=== PATIENT | female | born 1970 | race Caucasian/White ===

== ENCOUNTER → 2018-04-03 | Outpatient (CLI) | payer OTHER ==
[~2018-04-03] MED LIST: ADDERALL 30 MG30 MG PO; BUPROPION HCL100 MG PO; NORCO 7.5-3251 EACH PO
--- NOTE | 2018-04-03 12:23 | Diagnostic Imaging Report ---
TECHNIQUE: Magnetic resonance imaging of the LEFT foot was performed WITHOUT injected contrast. HISTORY: Left foot pain, lump COMPARISON: None available. DISCUSSION: Bone marrow signal is normal. No infiltrating lesion. Hardware with susceptibility artifact of the fifth metatarsal. Joint alignment intact. First MTP joint degenerative arthrosis. Plantar soft tissue marker placed on the level of the mid foot. 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 Signed by: Dr. Juan A Cedeño M.D. on 04/03/2018 12:20 PM
== END ==
LOC: MRI 10:36
PROVIDERS: ATTEND Podiatrist Foot & Ankle Surgery
DX: R22.42 Localized swelling, mass and lump, left lower limb (principal)

== ENCOUNTER → 2018-09-02 | Day surgery (SDC) | payer OTHER ==
[~2018-09-02] MED LIST changes: +ASPIR 8181 MG PO; +BALANCED SALT SOLN (OPTH) 15 ML BTL IO ONE; +FENTANYL CITRATE/PF 100MCG/2 ML INJ ONE; +GELATIN SPONGE 12-7MM ONE; +LIDOCAINE 2% /EPINEPHRINE 20 ML SDV INJ ONE; +LOSARTAN POTASS25 MG PO; +METOPROLOL SUCC25 MG PO; +MIDAZOLAM HCL 2 MG/2 ML VIAL ONE; +MULTI-VITAMIN1 EACH PO; +NEOMYCIN/POLYMYXIN/DEX (OPTH) 3.5 GM TUBE ONE; +PROPOFOL IV EMULSION 10 MG/ML 20 ML VIAL ONE; +SPIRONOLACTONE25 MG PO
--- OUTSIDE RECORDS SUMMARY | 2018-09-02 13:19 | XMS REPORT | Summary of Care ---
Author Author Letty Pollard R.N. Unknown Address Unknown Phone Unavailable Care Team Providers Care Sql Ssrs Ssis Developer Name Role Phone JOSÉ MIGUEL Contreras, EVARISTO Unavailable Unavailable EDGAR AVENDAÑO, GM Unavailable Unavailable EDGAR Contreras, GM Unavailable Unavailable Saud ARAGON, Yohannes Unavailable Unavailable MATOS ROOF TRUSS BUILDER, CHLOE Unavailable Unavailable José Miguel ARAGON, Evaristo Unavailable Unavailable IVAN LOCKHART, MONTSERRAT Unavailable Unavailable Unavailable Unavailable Functional Status Name Dates Details Functional status health issues are not documented Status: Name Dates Details Cognitive status health issues are not documented Status: Problems Name Dates Details Follicular cyst of skin and subcutaneous tissue (706.2, L72.9) Status: Active Acute upper respiratory infection (465.9, J06.9) Status: Active Reactive airway disease (493.90, J45.909) Status: Active Symptomatic menopausal or female climacteric states (627.2, N95.1) Status: Active Amenorrhea (626.0, N91.2) Status: Active Hot flashes, menopausal (627.2, N95.1) Status: Active 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, 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 Sebaceous cyst (706.2, L72.3) Status: Active Nausea (787.02, R11.0) Status: Active Acute vaginitis (616.10, N76.0) Status: Active Vaginal lesion (623.8, N89.8) Status: Active Exposure to STD (V01.6, Z20.2) Status: Active Herpes simplex viral infection (054.9, B00.9) Status: Active Well female exam with routine gynecological exam (V72.31, Z01.419) Status: Active Screening cholesterol level (V77.91, Z13.220) Status: Active Anxiety (300.00, F41.9) Status: Active Abdominal discomfort, generalized (789.07, R10.84) Status: Active Screen for colon cancer (V76.51, Z12.11) Status: Active Screening for diabetes mellitus (V77.1, Z13.1) Status: Active Acid reflux (530.81, K21.9) Status: Active Breast cancer screening (V76.10, Z12.31) Status: Active Mood disorder (296.90, F39) Status: Active Tobacco abuse (305.1, Z72.0) Status: Active Joint pain (719.40, M25.50) Status: Active Depression, recurrent (296.30, F33.9) Status: Active Rash, skin (782.1, R21) Status: Active Lipoma of back (214.8, D17.1) Status: Active 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, 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: Active Seborrheic keratosis (702.19, L82.1) Status: Active Solar lentigo (709.09, L81.4) Status: Active Personal history of malignant neoplasm of skin (V10.83, Z85.828) Status: Active 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, Q82.8) Status: Active Mass of hand (782.2, R22.30) Status: Active Pain in both hands (729.5, M79.641) Status: Active Primary osteoarthritis of both first carpometacarpal joints (715.14, M18.0) Status: Active Onychomycosis (110.1, B35.1) Status: Active Tinea corporis (110.5, B35.4) Status: Active Acute cervical radiculopathy (723.4, M54.12) Status: Active Bilateral carpal tunnel syndrome (354.0, G56.03) Status: Active Elevated glucose level (790.29, R73.09) Status: Active Fatigue (780.79, R53.83) Status: Active Weight gain, abnormal (783.1, R63.5) Status: Active Need for influenza vaccination (V04.81, Z23) Status: Active Difficulty seeing (379.99, H57.9) Status: Active Preop examination (V72.84, Z01.818) Status: Active Benign essential HTN (401.1, I10) Status: Active Chronic systolic heart failure (428.22, I50.22) Status: Active Left bundle branch block (426.3, I44.7) Status: Active SOB (shortness of breath) on exertion (786.05, R06.02) Status: Active CHF (congestive heart failure) (428.0, I50.9) Status: Active Encounter for medication monitoring (V58.83, Z51.81) Status: Active Medications Name Dates Details Adderall 30 MG Oral Tablet TAKE 1 TABLET TWICE DAILY. Active HYDROcodone-Acetaminophen 5-325 MG Oral Tablet TAKE 1 TABLET EVERY 6 HOURS PRN * Refills: 0 Active Losartan Potassium 25 MG Oral Tablet TAKE 1 TABLET BY MOUTH TWICE DAILY * Quantity: 90 Refills: 3 DHOBLE M.D., EVARISTO * Start : 01-Sep-2018 Active Multivitamins TABS TAKE 1 TABLET DAILY. * Refills: 0 Active Bufferin Low Dose 81 MG Oral Tablet Take one tablet daily * Quantity: 990 Refills: 3 DHOBLE M.D., EVARISTO * Start : 07-Jul-2018 Active Metoprolol Succinate ER 25 MG Oral Tablet Extended Release 24 Hour TAKE 1 TABLET ONCE DAILY. * Quantity: 90 Refills: 3 DHOBLE M.D., EVARISTO * Start : 13-Aug-2018 Active Spironolactone 25 MG Oral Tablet TAKE 1/2 TABLET DAILY (12.5 MG) * Quantity: 45 Refills: 3 DHOBLE M.D., EVARISTO * Start : 13-Aug-2018 Active Allergies and Adverse Reactions Name Dates Details No Known Drug Allergies (Allergy) Status: Active Past Medical History Name Dates Details History of ADHD, adult residual type (314.01, F90.8) Status: Resolved History of Benign essential hypertension (401.1, I10) Status: Resolved History of Breast screening (V76.10, Z12.31) Status: Resolved History of chest pain (V13.89, Z87.898) Status: Resolved History of Depressive disorder (311, F32.9) Status: Resolved History of fatigue (V13.89, Z87.898) Status: Resolved History of shortness of breath (V13.89, Z87.898) Status: Resolved History of Transient organic psychotic condition, 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 current status unknown Vital Signs Date Test Result Details [id number] BP Systolic 164 mm[Hg] Status: Comments: Location: LUE; Position: Sitting BP Diastolic 96 mm[Hg] Status: Comments: Location: LUE; Position: Sitting Height 64 in Status: Weight 171.125 lb Status: Body Mass Index Calculated 29.37 kg/m2 Status: Body Surface Area Calculated 1.83 m2 Status: Heart Rate 97 /min Status: Respiration Rate 16 /min Status: Results Date Description Value Details Results not documented Plan of Care Name Dates Details Planned Observations Planned Goals not documented Planned Encounters Appointment; EVARISTO KUMAR M.D. On: 01-Sep-2018 13:40 Appointment; [facility], ECHO On: 08-Dec-2018 13:00 Appointment; EVARISTO KUMAR M.D. On: 10-Dec-2018 11:40 Interventions Provided Medication Changes* Losartan Potassium 25 MG Oral Tablet - Renew Instructions Name Dates Details Instructions not documented Encounters Appointment; CHLOE MATOS NP Encounter Diagnosis: Problem not documented On: 26-Nov-2017 15:00 Appointment; ERICK OZUNA M.D. Encounter Diagnosis: Problem not documented On: 29-Nov-2017 13:45 Appointment; ANGELIQUE CURRAN M.D. Encounter Diagnosis: Problem not documented On: 12-Dec-2017 15:30 Appointment; ERICK OZUNA M.D. Encounter Diagnosis: Problem not documented On: 20-Dec-2017 13:00 Appointment; ANGELIQUE CURRAN M.D. Encounter Diagnosis: Problem not documented On: 07-Jan-2018 15:15 Appointment; CHLOE MATOS NP Encounter Diagnosis: Problem not documented On: 03-Apr-2018 13:30 Appointment; EVARISTO KUMAR M.D. Encounter Diagnosis: Problem not documented On: 16-Apr-2018 14:20 Appointment; NATASHA ALLEN RD Encounter Diagnosis: Problem not documented On: 14-May-2018 13:00 Appointment; CHLOE MATOS NP Encounter Diagnosis: Problem not documented On: 17-Jun-2018 14:15 Appointment; FELICITY MCGUIRE Encounter Diagnosis: Problem not documented On: 18-Jun-2018 11:00 Appointment; ERICK OZUNA M.D. Encounter Diagnosis: Problem not documented On: 20-Jun-2018 13:00 Appointment; ERICK OZUNA M.D. Encounter Diagnosis: Problem not documented On: 20-Jun-2018 13:00 Appointment; MONTSERRAT LOVE P.A. Encounter Diagnosis: Problem not documented On: 25-Jun-2018 12:45 Appointment; EVARISTO KUMAR M.D. Encounter Diagnosis: Problem not documented On: 07-Jul-2018 13:00 Appointment; EVARISTO KUMAR M.D. Encounter Diagnosis: Problem not documented On: 13-Aug-2018 11:20
--- OUTSIDE RECORDS SUMMARY | 2018-09-02 13:19 | XMS REPORT ---
Author [facility] Address Unknown Phone Unavailable Care Team Providers Care Metal Painter Name Role Phone Juan A SIEGEL Unavailable Unavailable Problems This patient has no known problems. Allergies, Adverse Reactions, Alerts This patient has no known allergies or adverse reactions. Medications This patient has no known medications. Results Test Description Test Time Test Comments Text Results Atomic Results Result Comments MRI FOOT LEFT WO 2018-04-03 12:13:00 [place] [id number] Patient Name: PAOLA DUGAN MR #: [id number] : 1970 Age/Sex: 48/F Req #: [id number] Adm Physician: Ordered by: MARIXA SIEGEL DPM Report #: [id number] Location: MRI Room/Bed: Procedure: [id number] MRI/MRI FOOT LEFT WO Exam Date: Exam Time: REPORT STATUS: Signed TECHNIQUE: Magnetic resonance imaging of the LEFT foot was performed WITHOUT injected contrast. HISTORY: Left foot pain, lump COMPARISON: None available. DISCUSSION: Bone marrow signal is normal. No infiltrating lesion. Hardware with susceptibility artifact of the fifth metatarsal. Joint alignment intact. First MTP joint degenerative arthrosis. Plantar soft tissue marker placed on the level of the mid foot. 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 Signed by: Dr. Vikram Donnelly M.D. on 04/03/2018 12:20 PM Dictated By: VIKRAM DONNELLY MD 19 Transcribed By: CYNTHIA on 04/03/181219 COPY TO: MARIXA SIEGEL DPM
[2018-09-02 17:25] VITALS: BP 133/79
== END | disposition home or self-care (01) ==
LOC: OR 13:16
PROVIDERS: ATTEND Ophthalmology
DX: H02.834 Dermatochalasis of left upper eyelid (principal); H02.831 Dermatochalasis of right upper eyelid; F41.8 Other specified anxiety disorders; I11.0 Hypertensive heart disease with heart failure; I50.9 Heart failure, unspecified; F90.8 Attention-deficit hyperactivity disorder, other type; F32.9 Major depressive disorder, single episode, unspecified; F17.210 Nicotine dependence, cigarettes, uncomplicated; Z79.82 Long term (current) use of aspirin
CPT/HCPCS: 15823; J2001; J2250; J2704

== ENCOUNTER 2021-11-02 17:26 | Observation (INO) | payer OTHER ==
[~2021-11-02] VITALS: Ht 162.6 cm; Wt 81.4 kg
[~2021-11-02 17:26] MED LIST changes: -BALANCED SALT SOLN (OPTH) 15 ML BTL IO ONE; -FENTANYL CITRATE/PF 100MCG/2 ML INJ ONE; -GELATIN SPONGE 12-7MM ONE; -LIDOCAINE 2% /EPINEPHRINE 20 ML SDV INJ ONE; -MIDAZOLAM HCL 2 MG/2 ML VIAL ONE; -NEOMYCIN/POLYMYXIN/DEX (OPTH) 3.5 GM TUBE ONE; -PROPOFOL IV EMULSION 10 MG/ML 20 ML VIAL ONE
[2021-11-02 18:01] LABS: BASOPHILS % 0.3 % (0.0-1.0); EOSINOPHILS # (AUTO) 0.2 (0.0-0.4); EOSINOPHILS % 2.6 % (0.0-6.0); HEMATOCRIT 42.6 % (34.2-44.1); HEMOGLOBIN 13.6 g/dL (12.0-16.0); LYMPHOCYTES # (AUTO) 1.7 (1.0-3.2); LYMPHOCYTES % 22.5 % (18.0-39.1); MEAN CORPUSCULAR HEMOGLOBIN 31.1 pg (28-32); MEAN CORPUSCULAR HGB CONC 31.9 g/dL (31-35); MEAN CORPUSCULAR VOLUME 97.5 fL (81-99); MONOCYTES # (AUTO) 0.7 (0.2-0.8); MONOCYTES % 8.8 % (4.4-11.3); NEUTROPHILS % 65.4 % (38.7-80.0); PLATELET COUNT 212 x10e3/uL (140-360); RED BLOOD COUNT 4.37 x10e6/uL (3.6-5.1); RED CELL DISTRIBUTION WIDTH 13.6 % (11.7-14.4)
[2021-11-02 18:11] LABS: ALANINE AMINOTRANSFERASE 21 IU/L (0-55); ALBUMIN 3.4 g/dL (3.5-5.0); ALKALINE PHOSPHATASE 50 IU/L (40-150); ANION GAP 11.7 mmol/L (8-16); BLOOD UREA NITROGEN 13 mg/dL (7-26); BUN/CREATININE RATIO 16 (6-25); CALCIUM 8.5 mg/dL (8.4-10.2); CARBON DIOXIDE 24 mmol/L (22-29); CHLORIDE 111 mmol/L (98-107); CREATINE KINASE 44 IU/L (29-168); CREATININE, SERUM 0.83 mg/dL (0.57-1.11); EST GLOMERULAR FILTRATION RATE 72 ML/MIN (60-); GLUCOSE 110 mg/dL (74-118); POTASSIUM 3.7 mmol/L (3.5-5.1); SODIUM 143 mmol/L (136-145)
[2021-11-02 19:06] LABS: CLARITY,URINE SL CLOUDY (CLEAR); COLOR,URINE YELLOW (YELLOW)
[2021-11-02 19:07] LABS: KETONES,URINE NEGATIVE (NEGATIVE); LEUKOCYTE ESTERASE ,URINE NEGATIVE (NEGATIVE); NITRITE,URINE NEGATIVE (NEGATIVE); PROTEIN,URINE DIPSTICK NEGATIVE (NEGATIVE)
[2021-11-02 19:08] LABS: AMPHETAMINES SCREEN,URINE POSITIVE (NEGATIVE); PHENCYCLIDINE SCREEN,URINE NEGATIVE (NEGATIVE)
[2021-11-02 19:09] LABS: BENZODIAZEPINES SCREEN,URINE POSITIVE (NEGATIVE)
[2021-11-02 19:11] LABS: URINE UROBILINOGEN 0.2 mg/dL (0.2 - 1)
[2021-11-02 19:13] LABS: BACTERIA,URINE FEW /HPF; EPITHELIAL CELLS,URINE FEW /LPF; RBC,URINE 0-5 /HPF (0-5); WBC,URINE (MAN) 0-5 /HPF (0-5)
[2021-11-02] MEDS ORDERED: ONDANSETRON HCL INJ 2MG/ML 2ML 2 MG/ML VIAL IV PRN (19:15)
[2021-11-02] MEDS ORDERED: ACETAMINOPHEN 325 MG TAB PO PRN (19:15)
[2021-11-02] MEDS ORDERED: DOCUSATE SODIUM 100 MG CAP PO PRN (19:15)
[2021-11-02 19:48] LABS: CREATINE KINASE 49 IU/L (29-168)
[2021-11-02 20:07] LABS: CHOL/HDL RATIO 3.8 (3.0-3.6)
[2021-11-02] MEDS ORDERED: CELEXA40 MG PO (20:59)
[2021-11-02] MEDS ORDERED: MELOXICAM7.5 MG PO (20:59)
[2021-11-02] MEDS ORDERED: CITALOPRAM HYDROBROMIDE 20 MG TAB PO SCH (21:00)
[2021-11-02] MEDS ORDERED: NICOTINE 21 MG/EA PATCH TOP SCH (21:00)
[2021-11-02 21:05] VITALS: BP 148/79
[2021-11-02 21:15] VITALS: BP 148/79
[2021-11-02] MEDS: SODIUM CHLORIDE 0.9% 1000ML 1,000 ML IV SCH (21:38)
[2021-11-02] MEDS ORDERED: HYDROCODON-ACE1 EA11 PO (22:01)
[2021-11-02] MEDS: LOSARTAN POTASSIUM 25 MG TAB PO SCH (22:04)
[2021-11-02 22:44] VITALS: BP 148/79
[2021-11-03] VITALS: BP 160/81
[2021-11-03 03:36] LABS: BASOPHILS % 0.4 % (0.0-1.0); EOSINOPHILS # (AUTO) 0.3 (0.0-0.4); HEMATOCRIT 41.9 % (34.2-44.1); HEMOGLOBIN 13.6 g/dL (12.0-16.0); LYMPHOCYTES # (AUTO) 2.7 (1.0-3.2); LYMPHOCYTES % 32.3 % (18.0-39.1); MEAN CORPUSCULAR HEMOGLOBIN 31.3 pg (28-32); MEAN CORPUSCULAR HGB CONC 32.5 g/dL (31-35); MEAN CORPUSCULAR VOLUME 96.5 fL (81-99); MONOCYTES # (AUTO) 0.7 (0.2-0.8); MONOCYTES % 8.7 % (4.4-11.3); NEUTROPHILS # (AUTO) 4.5 (2.1-6.9); NEUTROPHILS % 54.5 % (38.7-80.0); PLATELET COUNT 210 x10e3/uL (140-360); RED BLOOD COUNT 4.34 x10e6/uL (3.6-5.1); RED CELL DISTRIBUTION WIDTH 13.7 % (11.7-14.4)
[2021-11-03 03:54] LABS: CREATINE KINASE 37 IU/L (29-168)
[2021-11-03 04:00] VITALS: BP 123/81
[2021-11-03 04:17] LABS: ALBUMIN 3.2 g/dL (3.5-5.0); ANION GAP 12.3 mmol/L (8-16); CALCIUM 8.1 mg/dL (8.4-10.2); CREATININE, SERUM 0.69 mg/dL (0.57-1.11); POTASSIUM 4.3 mmol/L (3.5-5.1)
[2021-11-03] MEDS: SODIUM CHLORIDE 0.9% 1000ML 1,000 ML IV SCH (04:19)
[2021-11-03 08:48] VITALS: BP 149/75
[2021-11-03] MEDS ORDERED: MULTIVITAMINS/MINERALS TAB PO SCH (09:00)
[2021-11-03] MEDS ORDERED: SPIRONOLACTONE 25 MG TAB PO SCH (09:00)
[2021-11-03] MEDS ORDERED: ASPIRIN 81 MG CHEW TAB PO SCH (09:00)
[2021-11-03] MEDS ORDERED: LOSARTAN POTASSIUM 25 MG TAB PO SCH (09:00)
[2021-11-03] MEDS ORDERED: METOPROLOL SUCCINATE 25 MG TAB XL PO SCH (09:00)
[2021-11-03] MEDS ORDERED: (Adderall 30 Mg Tablet) PO SCH (09:00)
[2021-11-03 09:15] VITALS: BP 149/75
[2021-11-03] MEDS: LOSARTAN POTASSIUM 25 MG TAB PO SCH (09:53)
[2021-11-03 12:37] LABS: CREATINE KINASE 36 IU/L (29-168)
[2021-11-03 12:38] VITALS: BP 143/76
[2021-11-03] MEDS ORDERED: ONDANSETRON HCL 4 MG ORAL DISINTEGRATING TAB PO PRN (15:30)
== END 2021-11-03 16:36 | disposition home or self-care (01) ==
LOC: ER 17:38 → ERHOLD 19:12 → MED/SURG 21:05
PROVIDERS: ADMIT Internal Medicine; ATTEND Internal Medicine
DX: R55 Syncope and collapse (principal); E86.0 Dehydration; I10 Essential (primary) hypertension; F90.9 Attention-deficit hyperactivity disorder, unspecified type; F17.210 Nicotine dependence, cigarettes, uncomplicated; Z87.11 Personal history of peptic ulcer disease; F14.90 Cocaine use, unspecified, uncomplicated; F15.90 Other stimulant use, unspecified, uncomplicated; F19.90 Other psychoactive substance use, unspecified, uncomplicated; Z20.822 Contact with and (suspected) exposure to COVID-19
CPT/HCPCS: 36415 ×2; 70450; 71045; 80053 ×2; 80061; 80307; 80320; 81001; 82550 ×2; 82553 ×2; 84443; 84484 ×2; 85025 ×2; 93005; 93306; 93880; 97116; 97139 ×2; 97161; 99284; G0378 ×2; J7030 ×2; U0002